=== PATIENT | female | born 1975 | race Two or more races ===

== ENCOUNTER → 2017-07-28 | Outpatient (CLI) | payer OTHER ==
--- NOTE | 2017-07-28 11:18 | Diagnostic Imaging Report ---
Indication: Abdominal distention and bloating. History of cholecystectomy 2009. Technique: Grayscale and duplex Doppler imaging of the abdomen performed. Comparison: None Findings: The liver is diffusely echogenic and has a craniocaudal dimension of about 18 cm which is enlarged. Spleen is borderline enlarged measuring about 11 to 12 cm. There is no definite surface nodularity of the liver identified. The CBD is 5.4 mm in diameter. The main portal vein on Doppler interrogation appears widely patent with normal monophasic waveform. There are a few discrete small bilateral renal cysts. The kidneys demonstrate normal echogenicity and there is no hydronephrosis. No free fluid identified. The demonstrated part of the pancreas, aorta, IVC appear normal. Gallbladder is not seen. IMPRESSION: Mild hepatomegaly with fatty infiltration. Borderline splenomegaly. Bilateral renal cysts
== END | disposition home or self-care (01) ==
LOC: ULS 10:08
DX: R14.0 Abdominal distension (gaseous) (principal); Z90.49 Acquired absence of other specified parts of digestive tract; K76.0 Fatty (change of) liver, not elsewhere classified; N20.0 Calculus of kidney; R16.0 Hepatomegaly, not elsewhere classified
CPT/HCPCS: 76700